=== PATIENT | male | born 1955 | race Caucasian/White ===

== ENCOUNTER 2019-09-09 12:51 | Emergency (ER) | payer OTHER ==
[~2019-09-09] VITALS: Ht 182.9 cm; Wt 106.6 kg
[2019-09-09] MEDS ORDERED: FLOMAX0.4 MG PO (13:17)
[2019-09-09] MEDS ORDERED: GLUCOPHAGE1000 MG PO (13:18)
[2019-09-09 14:25] VITALS: BP 115/70
== END 2019-09-09 14:26 | disposition home or self-care (01) ==
LOC: M.ERS 12:51
DX: E11.9 Type 2 diabetes mellitus without complications (principal); Z11.59 Encounter for screening for other viral diseases